=== PATIENT | female | born 1965 | race Caucasian/White ===

== ENCOUNTER 2016-09-06 15:56 | Inpatient (IN) ==
[2016-09-06] MEDS ORDERED: 0.9 % Sodium Chloride 1,000 ML IVC ONE ×2 (17:58→21:05)
[2016-09-06] MEDS ORDERED: *HR* Morphine 2 MG/ML SYRINGE IVP ONE (17:58)
--- NOTE | 2016-09-06 17:59 | Emergency Department Note ---
Disposition Clinical Impression: Small bowel obstruction Disposition: Admitted As Inpatient Condition: Fair General Adult HPI - General Chief complaint: ED Abdominal Pain Stated complaint: abd pain Time Seen by Provider: 09/06/16 17:38 Source: patient Limitations: no limitations - History of Present Illness Pain Scale: 10 - Related Data Home Medications Medication Instructions Recorded Confirmed Cholecalciferol (Vitamin D3) 1,000 unit PO DAILY 09/06/16 09/06/16 [Vitamin D3] Multivitamin [Multi-Day Vitamins] 1 tab PO DAILY 09/06/16 09/06/16 Thyroid,Pork [Director Microbiology Thyroid] 15 mg PO DAILY 09/06/16 09/06/16 Zinc Acetate [Galzin] 50 mg PO DAILY 09/06/16 09/06/16 Allergies Allergy/AdvReac Type Severity Reaction Status Date / Time gentamicin AdvReac Itching Verified 09/06/16 16:20 Sulfa (Sulfonamide AdvReac Hives Verified 09/06/16 16:20 Antibiotics) Past Medical History - Past Medical History Medical history: Reports: no medical history Psychiatric history: Reports: no psych history - Social History Smoking Status: Never smoker Smokeless Tobacco Status: No Alcohol use: Reports: none Drug use: Reports: none Physical Exam - General Limitations: no limitations General appearance: alert Course - Reevaluation(s) Reevaluation #1: I saw the patient with the resident, Dr. Aldrich. She presents with abdominal pain that started this morning. It was gradual in onset but rapidly progressing. She complains of pain diffusely. On physical exam the only place she is not tender in the entire abdominal exam is the left lower quadrant. She does have bowel sounds. She is not vomiting and has not had any urinary symptoms. She does report having had some diarrhea. We will give her medications for symptom relief and some IV fluids and will do a laboratory workup and a CAT scan of the belly. Disposition will be based on diagnostic results and reevaluation. Time: 17:58 Reevaluation #2: Patient's labs come back normal. Urine is a little abnormal but it seems to be contaminated. Furthermore she does not describe urinary tract infection symptoms. The radiologist called me with the CAT scan findings and there appears to be a small bowel obstruction that the radiologist is concerned is indicative of a closed loop obstruction or at the very least a high-grade obstruction. The patient does not look too bad here in the department. She is not throwing up here in the department. Belly is tender but improved with medication. We will go ahead and consult surgery for guidance on disposition. Time: 20:05 Vital Signs Temperature 97.5 F L 09/06/16 16:16 Pulse Rate 74 09/06/16 16:16 Respiratory Rate 16 09/06/16 16:16 Blood Pressure 165/106 09/06/16 16:16 O2 Sat by Pulse Oximetry 99 09/06/16 16:16 Temperature 98.4 F 09/09/16 16:00 Pulse Rate 64 09/09/16 16:00 Respiratory Rate 16 09/09/16 16:00 Blood Pressure 143/83 09/09/16 16:00 O2 Sat by Pulse Oximetry 95 09/09/16 16:00 Oxygen Delivery Oxygen Delivery Room Air Medical Decision Making - Lab Data Result diagrams: 09/09/16 06:35 09/09/16 06:35 Lab Results 09/06/16 09/06/16 09/06/16 Range/Units 18:47 18:47 18:57 WBC 9.7 (4.3-11.1) K/mcL RBC 4.63 (3.82-4.97) M/mcL Hgb 14.1 (11.5-15.4) g/dL Hct 42.3 (35.3-44.9) % MCV 91.4 (83.0-100.0) fL MCH 30.5 (28.0-33.3) pg MCHC 33.3 (31.6-35.5) g/dL RDW 12.7 (11.5-14.5) % Plt Count 229 (140-400) K/mcL MPV 12.2 (9.4-12.4) fL Immature Gran % 0.2 (0-4) % Seg Neutrophils % 86.6 % Lymphocytes % 9.7 % Monocytes % 3.0 % Eosinophils % 0.1 % Basophils % 0.4 % Neutrophils # 8.4 (1.6-8.9) K/mcL Lymphocytes # 0.9 (0.6-4.6) K/mcL Monocytes # 0.3 (0.0-1.3) K/mcL Eosinophils # 0.0 (0.0-0.6) K/mcL Basophils # 0.0 (0.0-0.2) K/mcL Sodium 135 L (136-145) mEq/L Potassium 4.0 (3.5-4.5) mEq/L Chloride 106 (98-109) mEq/L Carbon Dioxide 20 (19-29) mEq/L BUN 15 (7-20) mg/dL Creatinine 0.83 (0.57-1.11) mg/dL Est GFR ( Amer) > 60 (> 60) Est GFR (Non-Af Amer) > 60 (> 60) BUN/Creatinine Ratio 18 (6-26) Glucose 111 H (70-99) mg/dL POC Glucose (58-89) Calculated Osmolality 282 (280-300) Calcium 9.4 (8.6-10.8) mg/dL Magnesium (1.6-2.6) mg/dL Total Bilirubin 0.7 (0.2-1.2) mg/dL Direct Bilirubin 0.4 (0.0-0.5) mg/dL Indirect Bilirubin 0.3 (0.0-1.2) mg/dL AST 26 (5-34) Units/L ALT 32 (0-55) Units/L Alkaline Phosphatase 80 (38-126) Units/L Serum Total Protein 7.7 (6.0-8.3) g/dL Albumin 3.8 (3.5-5.0) g/dL Globulin 3.9 H (2.4-3.5) g/dL Albumin/Globulin Ratio 1.0 L (1.1-2.2) Amylase 48 (25-125) Units/L Lipase 26 (8-78) Units/L TSH (0.350-4.840) mcIU/mL Urine Color Yellow (Yellow) Urine Clarity Clear (Clear) Urine pH 8.0 (5.0-8.0) pH Units Ur Specific [place] 1.025 (1.010-1.025) Urine Protein 30 H (Neg-Trace) mg/dL Urine Glucose (UA) Normal (Normal) mg/dL Urine Ketones 15 H (Negative) mg/dL Urine Blood Negative (Negative) Urine Nitrite Negative (Negative) Urine Bilirubin Negative (Negative) Urine Urobilinogen Normal (Normal) mg/dL Ur Leukocyte Esterase Trace H (Negative) Urine Microscopic RBC 5-15 H (0-3) per hpf Urine Microscopic WBC 5-15 H (0-3) per hpf Ur Squamous Epith Cells Many H (None-Few) per lpf Urine Bacteria Moderate H (None-Few) per hpf Hyaline Casts None Seen (None-Few) per lpf Ur Culture Indicated? YES A (NO) 09/07/16 09/07/16 09/07/16 Range/Units 04:29 04:29 05:52 WBC 8.0 (4.3-11.1) K/mcL RBC 3.96 (3.82-4.97) M/mcL Hgb 12.2 D (11.5-15.4) g/dL Hct 37.8 (35.3-44.9) % MCV 95.5 (83.0-100.0) fL MCH 30.8 (28.0-33.3) pg MCHC 32.3 (31.6-35.5) g/dL RDW 12.9 (11.5-14.5) % Plt Count 203 (140-400) K/mcL MPV 12.3 (9.4-12.4) fL Immature Gran % 0.4 (0-4) % Seg Neutrophils % 67.1 % Lymphocytes % 22.0 % Monocytes % 8.2 % Eosinophils % 1.7 % Basophils % 0.6 % Neutrophils # 5.4 (1.6-8.9) K/mcL Lymphocytes # 1.8 (0.6-4.6) K/mcL Monocytes # 0.7 (0.0-1.3) K/mcL Eosinophils # 0.1 (0.0-0.6) K/mcL Basophils # 0.1 (0.0-0.2) K/mcL Sodium 140 (136-145) mEq/L Potassium 4.0 (3.5-4.5) mEq/L Chloride 110 H (98-109) mEq/L Carbon Dioxide 21 (19-29) mEq/L BUN 12 (7-20) mg/dL Creatinine 0.78 (0.57-1.11) mg/dL Est GFR ( Amer) > 60 (> 60) Est GFR (Non-Af Amer) > 60 (> 60) BUN/Creatinine Ratio 15 (6-26) Glucose 97 (70-99) mg/dL POC Glucose 88 (58-89) Calculated Osmolality 290 (280-300) Calcium 8.1 L (8.6-10.8) mg/dL Magnesium 1.9 (1.6-2.6) mg/dL Total Bilirubin 0.8 (0.2-1.2) mg/dL Direct Bilirubin (0.0-0.5) mg/dL Indirect Bilirubin (0.0-1.2) mg/dL AST 20 (5-34) Units/L ALT 25 (0-55) Units/L Alkaline Phosphatase 61 (38-126) Units/L Serum Total Protein 6.3 (6.0-8.3) g/dL Albumin 3.0 L D (3.5-5.0) g/dL Globulin 3.3 (2.4-3.5) g/dL Albumin/Globulin Ratio 0.9 L (1.1-2.2) Amylase (25-125) Units/L Lipase (8-78) Units/L TSH 1.697 (0.350-4.840) mcIU/mL Urine Color (Yellow) Urine Clarity (Clear) Urine pH (5.0-8.0) pH Units Ur Specific [place] (1.010-1.025) Urine Protein (Neg-Trace) mg/dL Urine Glucose (UA) (Normal) mg/dL Urine Ketones (Negative) mg/dL Urine Blood (Negative) Urine Nitrite (Negative) Urine Bilirubin (Negative) Urine Urobilinogen (Normal) mg/dL Ur Leukocyte Esterase (Negative) Urine Microscopic RBC (0-3) per hpf Urine Microscopic WBC (0-3) per hpf Ur Squamous Epith Cells (None-Few) per lpf Urine Bacteria (None-Few) per hpf Hyaline Casts (None-Few) per lpf Ur Culture Indicated? (NO) 09/07/16 Range/Units 11:05 WBC (4.3-11.1) K/mcL RBC (3.82-4.97) M/mcL Hgb (11.5-15.4) g/dL Hct (35.3-44.9) % MCV (83.0-100.0) fL MCH (28.0-33.3) pg MCHC (31.6-35.5) g/dL RDW (11.5-14.5) % Plt Count (140-400) K/mcL MPV (9.4-12.4) fL Immature Gran % (0-4) % Seg Neutrophils % % Lymphocytes % % Monocytes % % Eosinophils % % Basophils % % Neutrophils # (1.6-8.9) K/mcL Lymphocytes # (0.6-4.6) K/mcL Monocytes # (0.0-1.3) K/mcL Eosinophils # (0.0-0.6) K/mcL Basophils # (0.0-0.2) K/mcL Sodium (136-145) mEq/L Potassium (3.5-4.5) mEq/L Chloride (98-109) mEq/L Carbon Dioxide (19-29) mEq/L BUN (7-20) mg/dL Creatinine (0.57-1.11) mg/dL Est GFR ( Amer) (> 60) Est GFR (Non-Af Amer) (> 60) BUN/Creatinine Ratio (6-26) Glucose (70-99) mg/dL POC Glucose 85 (58-89) Calculated Osmolality (280-300) Calcium (8.6-10.8) mg/dL Magnesium (1.6-2.6) mg/dL Total Bilirubin (0.2-1.2) mg/dL Direct Bilirubin (0.0-0.5) mg/dL Indirect Bilirubin (0.0-1.2) mg/dL AST (5-34) Units/L ALT (0-55) Units/L Alkaline Phosphatase (38-126) Units/L Serum Total Protein (6.0-8.3) g/dL Albumin (3.5-5.0) g/dL Globulin (2.4-3.5) g/dL Albumin/Globulin Ratio (1.1-2.2) Amylase (25-125) Units/L Lipase (8-78) Units/L TSH (0.350-4.840) mcIU/mL Urine Color (Yellow) Urine Clarity (Clear) Urine pH (5.0-8.0) pH Units Ur Specific [place] (1.010-1.025) Urine Protein (Neg-Trace) mg/dL Urine Glucose (UA) (Normal) mg/dL Urine Ketones (Negative) mg/dL Urine Blood (Negative) Urine Nitrite (Negative) Urine Bilirubin (Negative) Urine Urobilinogen (Normal) mg/dL Ur Leukocyte Esterase (Negative) Urine Microscopic RBC (0-3) per hpf Urine Microscopic WBC (0-3) per hpf Ur Squamous Epith Cells (None-Few) per lpf Urine Bacteria (None-Few) per hpf Hyaline Casts (None-Few) per lpf Ur Culture Indicated? (NO) Attestation Statement - Attestation Attestation: I, Dr. Padilla, examined this patient [id number] and my medical decision- making was reviewed with Dr. Aldrich, Resident Physician. I agree with the documented findings, disposition and treatment plan as described except to the extent set forth below. Please see my progress notes for details.
--- NOTE | 2016-09-06 18:24 | Emergency Department Note ---
Disposition Clinical Impression: Small bowel obstruction Disposition: Admitted As Inpatient Condition: Fair Referrals: Lucille Hood CNP [Primary Care Provider] - Forms: ED Satisfaction Letter, Work/School Release Abdominal Pain HPI - General Chief Complaint: ED Abdominal Pain Stated Complaint: abd pain Time Seen by Provider: 09/06/16 17:38 Source: patient - History of Present Illness HPI Narrative: 51-year-old female with no significant past medical history presents to the emergency department complaining of sharp epigastric pains that began at 0500 today. She describes the pains as "contractions" that come and go quickly. They have remained constant throughout the day. She notes that she is bloated and has had 3-4 episodes of diarrhea that began as loose and are now watery throughout the day, chills, lightheadedness with associated diaphoresis, decreased appetite and decreased fluid intake. She denies any recent sick contacts. She does state that she ate spaghetti squash last night for the first time. She has had 3 laparoscopic abdominal surgeries in the past and a hysterectomy. She notes that one of the laparoscopic surgeries is to remove adhesions in her abdomen. She states that in the past she was also evaluated for gallbladder problems, but she still has her gallbladder. she denies any vomiting significant nausea, fevers, recent weight loss, chest pain, palpitations, cough, wheezing, ear nose and throat symptoms, shortness of breath , numbness, rashes, bruising. Pain Scale: 10 - Related Data Allergies Allergy/AdvReac Type Severity Reaction Status Date / Time gentamicin AdvReac Itching Verified 09/06/16 16:20 Sulfa (Sulfonamide AdvReac Hives Verified 09/06/16 16:20 Antibiotics) All systems ED: reviewed and negative except as stated. Constitutional: Reports: chills. Denies: fever, weight change Cardiovascular: Denies: chest pain, palpitations Respiratory: Denies: dyspnea Gastrointestinal: Reports: abdominal pain, diarrhea. Denies: vomiting, hematemesis, melena Genitourinary: Denies: hematuria Abdominal Pain PMH - Past Medical History Medical history: Reports: no medical history Female Surgical History: Reports: hysterectomy, other Psychiatric history: Reports: no psych history - Social History Smoking status: Never smoker Alcohol use: Reports: none Drug use: Reports: none Physical Exam General: Alert and appears in mild distress, lying under a blanket in bed. Skin: Cool, dry, intact Head: Normocephalic and atraumatic Eye: PERRLA, EOMI Neck: Supple, trachea midline and no tenderness Cardiovascular: RRR, no murmur, normal perfusion, peripheral pulses equal b/l UE /LE Respiratory: CTAB, no wheezing, cough, or respiratory distress Musculoskeletal: Muscle strength, no tenderness, swelling or deformity GI: Soft, diffuse tenderness to RUQ, LUQ, RLQ and epigastric area, nondistended. Bowel sounds present. No guarding or rigidity Neuro: A&O to person, place, time and situation. No focal deficits noted on exam Psychiatric: Cooperative and appropriate mood and affect - General Limitations: no limitations General appearance: alert Course Course Narrative: Dear female presents to the emergency department complaining of abdominal pain that she describes as sharp, crampy and similar to contractions that began abruptly at 0500 this morning. She states that it has remained unchanged all day. It is associated with feeling bloated, diarrhea 3-4 times today that began as loose and then became watery, chills, lightheadedness associated with diaphoresis and slight nausea she describes decreased appetite and fluid intake as well. Denied vomiting and fever. On exam she appears lethargic with dry lips and diffusely tender abdomen. She does have bowel sounds and no peritoneal signs. The patient has a history of 3 laparoscopic abdominal surgeries, occluding 1 for adhesions, and a hysterectomy. Due to her abdominal surgical history suspicion is high for possible small bowel obstruction. Her CBC was unremarkable with WBC of 9.7. Her CMP was also unremarkable. Her CT scan of the abdomen revealed an early high grade small bowel obstruction versus possible closed loop obstruction in the left mid abdomen. Dr. Greenberg with general surgery was consulted, and requested the patient be admitted to the hospitalist service, started on IV fluids, NG tube placed and a consult to him placed. Dr. Dasilva with the hospitalist service was contacted and has accepted the patient for admission. - Reevaluation(s) Reevaluation #1: I have discussed the CAT scan results with the patient. I discussed that she has small bowel obstruction and that I have spoken to Dr. Greenberg, the general surgeon. I discussed that he would like her to be admitted and hydrated with IV fluids. I also explained that he would like an NG tube placed and discussed the process with her and her . She is agreeable to the plan and states understanding. She states that her pain is controlled currently and that she is not experiencing any nausea this time. - Consultations Consultation #1: Discussed with patient case with Dr. Greenberg. He would like us to admit the patient to the hospitalist service at this time, hydrate her with IV fluids and place an NG tube with a consult to General Surgery. Time: 21:00 Consultation #2: Case was discussed with hospitalist Dr. Dasilva who has accepted the patient for admission. Time: 21:15 Vital Signs Temperature 97.5 F L 09/06/16 16:16 Pulse Rate 74 09/06/16 16:16 Respiratory Rate 16 09/06/16 16:16 Blood Pressure 165/106 09/06/16 16:16 O2 Sat by Pulse Oximetry 99 09/06/16 16:16 Temperature 97.5 F L 09/06/16 16:16 Pulse Rate 71 09/06/16 19:27 Respiratory Rate 16 09/06/16 19:27 Blood Pressure 146/93 09/06/16 19:27 O2 Sat by Pulse Oximetry 99 09/06/16 19:27 Oxygen Delivery Oxygen Delivery Room Air Abdominal Pain - Lab Data Lab results reviewed: Yes I reviewed the patient's lab results. Result diagrams: 09/06/16 18:47 09/06/16 18:47 Lab Results 09/06/16 09/06/16 09/06/16 Range/Units 18:47 18:47 18:57 WBC 9.7 (4.3-11.1) K/mcL RBC 4.63 (3.82-4.97) M/mcL Hgb 14.1 (11.5-15.4) g/dL Hct 42.3 (35.3-44.9) % MCV 91.4 (83.0-100.0) fL MCH 30.5 (28.0-33.3) pg MCHC 33.3 (31.6-35.5) g/dL RDW 12.7 (11.5-14.5) % Plt Count 229 (140-400) K/mcL MPV 12.2 (9.4-12.4) fL Immature Gran % 0.2 (0-4) % Seg Neutrophils % 86.6 % Lymphocytes % 9.7 % Monocytes % 3.0 % Eosinophils % 0.1 % Basophils % 0.4 % Neutrophils # 8.4 (1.6-8.9) K/mcL Lymphocytes # 0.9 (0.6-4.6) K/mcL Monocytes # 0.3 (0.0-1.3) K/mcL Eosinophils # 0.0 (0.0-0.6) K/mcL Basophils # 0.0 (0.0-0.2) K/mcL Sodium 135 L (136-145) mEq/L Potassium 4.0 (3.5-4.5) mEq/L Chloride 106 (98-109) mEq/L Carbon Dioxide 20 (19-29) mEq/L BUN 15 (7-20) mg/dL Creatinine 0.83 (0.57-1.11) mg/dL Est GFR ( Amer) > 60 (> 60) Est GFR (Non-Af Amer) > 60 (> 60) BUN/Creatinine Ratio 18 (6-26) Glucose 111 H (70-99) mg/dL Calculated Osmolality 282 (280-300) Calcium 9.4 (8.6-10.8) mg/dL Total Bilirubin 0.7 (0.2-1.2) mg/dL Direct Bilirubin 0.4 (0.0-0.5) mg/dL Indirect Bilirubin 0.3 (0.0-1.2) mg/dL AST 26 (5-34) Units/L ALT 32 (0-55) Units/L Alkaline Phosphatase 80 (38-126) Units/L Serum Total Protein 7.7 (6.0-8.3) g/dL Albumin 3.8 (3.5-5.0) g/dL Globulin 3.9 H (2.4-3.5) g/dL Albumin/Globulin Ratio 1.0 L (1.1-2.2) Amylase 48 (25-125) Units/L Lipase 26 (8-78) Units/L Urine Color Yellow (Yellow) Urine Clarity Clear (Clear) Urine pH 8.0 (5.0-8.0) pH Units Ur Specific [place] 1.025 (1.010-1.025) Urine Protein 30 H (Neg-Trace) mg/dL Urine Glucose (UA) Normal (Normal) mg/dL Urine Ketones 15 H (Negative) mg/dL Urine Blood Negative (Negative) Urine Nitrite Negative (Negative) Urine Bilirubin Negative (Negative) Urine Urobilinogen Normal (Normal) mg/dL Ur Leukocyte Esterase Trace H (Negative) Urine Microscopic RBC 5-15 H (0-3) per hpf Urine Microscopic WBC 5-15 H (0-3) per hpf Ur Squamous Epith Cells Many H (None-Few) per lpf Urine Bacteria Moderate H (None-Few) per hpf Hyaline Casts None Seen (None-Few) per lpf Ur Culture Indicated? YES A (NO) - Radiology Data Radiology results reviewed: Yes I reviewed the patient's radiology results. CT abdomen/pelvis: 1.Early high grade small bowel obstruction versus possible closed loop obstruction in the left mid abdomen with associated ascites and mesenteric stranding. No pneumatosis or free air. 2. 3.7 cm mixed density area within the right anterior pelvis which may represent the patient's right ovary versus loculated hemorrhagic fluid. 3. 3 mm nonobstructing left renal calculus
[2016-09-06 18:59] LABS: Basophils % 0.4 %; Eosinophils % 0.1 %; Hematocrit 42.3 % (35.3-44.9); Hemoglobin 14.1 g/dL (11.5-15.4); Immature Granulocytes % 0.2 % (0-4); Lymphocytes # 0.9 K/mcL (0.6-4.6); Lymphocytes % 9.7 %; Mean Corpuscular HGB Conc 33.3 g/dL (31.6-35.5); Mean Corpuscular Hemoglobin 30.5 pg (28.0-33.3); Mean Corpuscular Volume 91.4 fL (83.0-100.0); Mean Platelet Volume 12.2 fL (9.4-12.4); Monocytes # 0.3 K/mcL (0.0-1.3); Neutrophils # 8.4 K/mcL (1.6-8.9); Platelet Count 229 K/mcL (140-400); Red Blood Count 4.63 M/mcL (3.82-4.97); Red Cell Distribution Width 12.7 % (11.5-14.5); Segmented Neutrophils % 86.6 %
[2016-09-06 19:14] LABS: Alanine Aminotransferase 32 Units/L (0-55); Albumin 3.8 g/dL (3.5-5.0); Alkaline Phosphatase 80 Units/L (38-126); Amylase 48 Units/L (25-125); Aspartate Amino Transferase 26 Units/L (5-34); BUN/Creatinine Ratio 18 (6-26); Bilirubin,Direct 0.4 mg/dL (0.0-0.5); Bilirubin,Indirect 0.3 mg/dL (0.0-1.2); Bilirubin,Total 0.7 mg/dL (0.2-1.2); Blood Urea Nitrogen 15 mg/dL (7-20); Calcium 9.4 mg/dL (8.6-10.8); Carbon Dioxide 20 mEq/L (19-29); Chloride 106 mEq/L (98-109); Globulin 3.9 g/dL (2.4-3.5); Glucose 111 mg/dL (70-99); Lipase 26 Units/L (8-78); Osmolality,Calculated 282 (280-300); Sodium 135 mEq/L (136-145); Total Protein 7.7 g/dL (6.0-8.3); eGFR For African Americans > 60 (> 60); eGFR For Non-African Americans > 60 (> 60)
[2016-09-06 19:16] LABS: Bilirubin,Urine Negative (Negative); Blood,Urine Negative (Negative); Clarity,Urine Clear (Clear); Color,Urine Yellow (Yellow); Glucose,Urine (UA) Normal (Normal); Ketones,Urine 15 mg/dL (Negative); Leukocyte Esterase,Urine Trace (Negative); Nitrite,Urine Negative (Negative); Protein,Urine 30 mg/dL (Neg-Trace); Specific Gravity,Urine 1.025 (1.010-1.025); Urobilinogen,Urine Normal (Normal)
[2016-09-06 19:18] LABS: Bacteria,Urine Moderate per hpf (None-Few); Hyaline Casts,Urine None Seen per lpf (None-Few); Squamous Epithelial Cell,Urine Many per lpf (None-Few)
[2016-09-06] MEDS ORDERED: Ondansetron 4 MG/2 ML VIAL IVP ONE (21:30)
[2016-09-06] MEDS ORDERED: Naloxone 0.4 MG/ML INJ IVP PRN (23:33)
[2016-09-06] MEDS: Pantoprazole 40 MG VIAL IVP SCH (23:54)
[2016-09-06] MEDS: 0.9 % Sodium Chloride w KCl 20 MEQ/1,000 ML MLS IVC SCH (23:54)
[2016-09-06] MEDS: *HR* Morphine 2 MG/ML SYRINGE IVP PRN (23:54)
[2016-09-06] MEDS: *HR* Heparin 5,000 UNIT/ML VIAL SQ SCH (23:54)
--- NOTE | 2016-09-07 03:08 | Internal Med History&Physical ---
Date of Encounter: 09/06/16 Time of Encounter: 23:20 Assessment and Plan (1) Small bowel obstruction Current visit: Yes Status: Acute 1. Continue NGT to low wall suction. 2. IVF. 3. NPO. 4. Surgery consult. 5. Follow up xray (AAS) in the morning. 6. Pain control with IV morphine PRN and anti-emetic therapy as needed. (2) DVT prophylaxis Current visit: Yes Status: Acute 1. Heparin SQ. Internal Medicine - H&P: HPI Chief complaint: nausea/vomiting/abdominal pain Admitted From: Emergency Dept Plans for Post Hospital Care: Home History of present illness: Ms. Wagner is a 51 year old female who presented to ER [facility] with about a 24- hour history of protracted nausea, vomiting, and abdominal pain. Symptom onset was sudden and persisted throughout the day. Because of persistent symptoms and lack of improvement, she came to the ER for evaluation. She was seen and evaluated and diagnosed with small bowel obstruction based upon CT imaging of her abdomen and pelvis. Consult was placed to Dr. Greenberg for surgical consultation and request was made to admit to hospitalist service. Upon my assessment of the patient, she feels much better after her NG tube placement and pain medication. She denies any fevers, chills, cough, chest pain , shortness of breath, or myalgias. She has never had any small bowel obstruction before and/or any chronic GI issues. She has had prior gynecologic surgery in the form of hysterectomy, laparoscopy, and lysis of adhesions several years ago by gynecology. Of note, she takes [id number] thyroid supplement and multiple other supplements. She denies any chronic illnesses. In particular, she denies any hypothyroidism or any chronically managed disease process by her PCP. Past Med Surg Social Fam HX - Past Medical History Attestation: Yes The following information was validated with the patient. Source: patient, old records reviewed Medical history: no medical history Psychiatric history: no psych history - Past Surgical History Surgical History: hysterectomy, other (lysis of adhesions) - Social History Smoking Status: Never smoker Smokeless Tobacco Status: No Alcohol use: none Drug use: none Occupational status: employed Current living situation: Home, With Family Activity Level: Independent ambulation Recent Out of Country Travel Within the Last 8 Weeks: No - Family History Mother Hx Family Cardiac Disorders: Yes (HTN) Father Hx Family Cardiac Disorders: Yes (HTN) Hx Family Endocrine Disorder: Yes (DM) Internal Medicine - H&P: Meds Cholecalciferol (Vitamin D3) [Vitamin D] 1,000 unit PO DAILY 09/06/16 [History] Multivitamin [Multi-Day Vitamins] 1 tab PO DAILY 09/06/16 [History] Thyroid,Pork [Dog Walker Thyroid] 15 mg PO DAILY 09/06/16 [History] Zinc Acetate [Galzin] 50 mg PO DAILY 09/06/16 [History] Allergies gentamicin Adverse Reaction (Verified 09/06/16 16:20) Itching Sulfa (Sulfonamide Antibiotics) Adverse Reaction (Verified 09/06/16 16:20) Hives - Constitutional Constitutional: no chills, no fever(s) - EENT Eyes: no blurry vision, no change in vision Ears: no ear pain, no tinnitus Nose, mouth and throat: no nasal congestion, no sinus pressure, no sore throat - Cardiovascular Cardiovascular ROS IM: no chest pain, no dyspnea, no dyspnea on exertion - Respiratory Respiratory: no cough, no dyspnea, no hemoptysis, no dyspnea on exertion - Gastrointestinal Gastrointestinal: nausea, vomiting, no abdominal pain, no diarrhea, no hematemesis, no hematochezia, no melena - Genitourinary Genitourinary: no dysuria, no flank pain, no hematuria - Musculoskeletal Musculoskeletal ROS IM: no arthralgias, no back pain - Integumentary Integumentary IM: no rash, no jaundice - Neurological Neurological ROS: no dizziness, no focal weakness, no frequent falls - Psychiatric Psychiatric: no anxiety, no depression - Endocrine Endocrine IM: no cold intolerance, no heat intolerance - Hematologic/Lymphatic Hematologic/Lymphatic: no easy bruising, no lymphadenopathy - Allergic/Immunologic Allergic/Immunologic: no wheezing, no GI upset with certain foods - Constitutional Vitals: Temp Pulse Resp BP Pulse Ox 98.1 F 85 15 146/83 97 09/06/16 22:44 09/06/16 22:44 09/06/16 22:44 09/06/16 22:44 09/06/16 22:44 General appearance: Present: cooperative, mild distress, A&O X 3, pleasant, answers questions appropriately - Head Head exam: Present: atraumatic, normal inspection - Expanded Head Exam Head exam expanded: Absent: abrasion, contusion, general tenderness - Eye Eye exam: Present: EOMI, normal appearance, PERRL. Absent: scleral icterus Pupils: Present: normal accommodation - ENT ENT exam: Present: mucous membranes dry, normal exam, normal oropharynx Additional comments: NG tube in place - Neck Neck exam general surgery: Present: full ROM, normal inspection, supple. Absent : lymphadenopathy, nuchal rigidity, thyromegaly - Respiratory Respiratory exam: Present: CTAB. Absent: rales, respiratory distress, rhonchi, wheezes - Cardiovascular Cardiovascular exam: Present: RRR, +S1, +S2. Absent: diastolic murmur, systolic murmur - GI/Abdominal GI/Abdominal exam: Present: diminished bowel sounds, distended, tenderness ( diffuse), no peritoneal signs. Absent: guarding, hepatomegaly, mass, rebound, splenomegaly - Extremities Exam Extremities exam: Present: full ROM, normal capillary refill, warm. Absent: calf tenderness, joint swelling - Back Exam Back exam: Present: normal inspection. Absent: CVA tenderness (L), CVA tenderness (R) - Neurological Exam Neurological exam: Present: alert, CN II-XII intact, oriented X3, no focal deficits - Psychiatric Psychiatric exam: Present: normal affect, normal mood - Skin Skin exam: Present: dry, warm. Absent: rash Internal Med - H&P Results - Labs CBC & Chem 7: 09/06/16 18:47 09/06/16 18:47
[2016-09-07 05:01] LABS: Basophils # 0.1 K/mcL (0.0-0.2); Basophils % 0.6 %; Eosinophils # 0.1 K/mcL (0.0-0.6); Eosinophils % 1.7 %; Hematocrit 37.8 % (35.3-44.9); Hemoglobin 12.2 g/dL (11.5-15.4); Immature Granulocytes % 0.4 % (0-4); Lymphocytes # 1.8 K/mcL (0.6-4.6); Mean Corpuscular HGB Conc 32.3 g/dL (31.6-35.5); Mean Corpuscular Hemoglobin 30.8 pg (28.0-33.3); Mean Corpuscular Volume 95.5 fL (83.0-100.0); Mean Platelet Volume 12.3 fL (9.4-12.4); Monocytes # 0.7 K/mcL (0.0-1.3); Monocytes % 8.2 %; Neutrophils # 5.4 K/mcL (1.6-8.9); Platelet Count 203 K/mcL (140-400); Red Blood Count 3.96 M/mcL (3.82-4.97); Red Cell Distribution Width 12.9 % (11.5-14.5); Segmented Neutrophils % 67.1 %
[2016-09-07 05:24] LABS: Alanine Aminotransferase 25 Units/L (0-55); Albumin/Globulin Ratio 0.9 (1.1-2.2); Alkaline Phosphatase 61 Units/L (38-126); Aspartate Amino Transferase 20 Units/L (5-34); BUN/Creatinine Ratio 15 (6-26); Bilirubin,Total 0.8 mg/dL (0.2-1.2); Blood Urea Nitrogen 12 mg/dL (7-20); Calcium 8.1 mg/dL (8.6-10.8); Carbon Dioxide 21 mEq/L (19-29); Chloride 110 mEq/L (98-109); Globulin 3.3 g/dL (2.4-3.5); Glucose 97 mg/dL (70-99); Magnesium 1.9 mg/dL (1.6-2.6); Osmolality,Calculated 290 (280-300); Sodium 140 mEq/L (136-145); Total Protein 6.3 g/dL (6.0-8.3); eGFR For African Americans > 60 (> 60); eGFR For Non-African Americans > 60 (> 60)
[2016-09-07 05:40] LABS: Thyroid Stimulating Hormone 1.697 mcIU/mL (0.350-4.840)
[2016-09-07] MEDS ORDERED: Chloraseptic Spray 177 ML BOTTLE MM PRN ×2 (06:48→08:23)
[2016-09-07] MEDS: *HR* Heparin 5,000 UNIT/ML VIAL SQ SCH ×2 (06:50→19:07)
[2016-09-07] MEDS: 0.9 % Sodium Chloride w KCl 20 MEQ/1,000 ML MLS IVC SCH ×2 (08:10→16:31)
--- NOTE | 2016-09-07 08:16 | General Surgery Consult Note ---
<Laura Barakat Adilene - Last Filed: 09/07/16 08:02> Date of Encounter: 09/07/16 Time of Encounter: 08:00 Assessment and Plan (1) Small bowel obstruction Current Visit: Yes Status: Acute Continue with conservative treatment including: NPO and bowel rest NG tube to LIWS IV fluids Supportive care and pain control Repeat X-rays this am ordered per hospitalist Serial abdominal exams No urgent surgical intervention indicated at this time- will continue to follow and assess patient progress History of Present Illness Consult date: 09/07/16 Reason for consult: other (SBO) Requesting physician: Jeanmarie Loera History of present illness: Ms. Wagenr is a very pleasant 51 year old female with no significant past medical history who presents to the ED with complaints of abdominal pain. She reports that she had sudden onset of generalized abdominal discomfort yesterday which progressively worsened. She denies any aggrevating or alleviating factors. She admits to belching and mild nausea. Denies any vomiting. Admit to bloating. She reports 3-4 episodes of diarrhea yesterday without melena or hematochezia. She has had not recent changes in bowel habits with the exception of diarrhea yesterday. She does admit to shortness of breath due to the abdominal discomfort. She denies any chest pains. Denies any dysuria or urgency. She states that she had an episode similar to this many years ago but has never specifically been diagnosed with a bowel obstruction. She did have CT scan which shows concerns for a bowel obstruction. She did have an NG tube placed and states that she feels better today. We have been asked to see and evaluate the patient for surgical recommendations. Past Med Surg Social Fam HX - Past Medical History Source: patient Medical history: no medical history Psychiatric history: no psych history - Past Surgical History Surgical History: breast surgery (biopsy (benign)), hysterectomy, other (lysis of adhesions) - Social History Smoking Status: Never smoker Smokeless Tobacco Status: No Alcohol use: none Drug use: none Occupational status: employed Current living situation: Home - Independent Activity Level: Independent ambulation - Family History Mother Living Status: Still Living Hx Family Cardiac Disorders: Yes (HTN) Father Living Status: Still Living Hx Family Cardiac Disorders: Yes (HTN) Hx Family Endocrine Disorder: Yes (DM) Medications and Allergies Cholecalciferol (Vitamin D3) [Vitamin D] 1,000 unit PO DAILY 09/06/16 [History] Multivitamin [Multi-Day Vitamins] 1 tab PO DAILY 09/06/16 [History] Thyroid,Pork [Cloth Cutter Thyroid] 15 mg PO DAILY 09/06/16 [History] Zinc Acetate [Galzin] 50 mg PO DAILY 09/06/16 [History] Allergies gentamicin Adverse Reaction (Verified 09/06/16 16:20) Itching Sulfa (Sulfonamide Antibiotics) Adverse Reaction (Verified 09/06/16 16:20) Hives Review of Systems All systems PM: reviewed and no additional remarkable complaints except as stated (in the HPI) All systems PM: A 10-system review of systems was performed and is negative for pertinent findings except as documented above in the HPI. General Surgery Exam Initial Vital Signs Temp Pulse Resp BP Pulse Ox 97.5 F L 74 16 165/106 99 09/06/16 16:16 09/06/16 16:16 09/06/16 16:16 09/06/16 16:16 09/06/16 16:16 - General physical appearance well developed, well nourished, no distress, moderate pain - Eyes normal ocular movement - ENT normal mucosa, atraumatic, normocephalic - Neck trachea midline - Respiratory normal respiratory effort, clear to auscultation - Cardiovascular Cardiovascular exam: Present: RRR, 15, 16 - Abdomen Abdomen general surgery: Present: bowel sounds present (hypoactive), soft, tender (lower abdomen, mildly), wound (NG tube to LIWS (400ml of bilious drainage noted)) - Integumentary Integumentary general surgery: Present: warm and dry - Neurologic Present: CN 2-12 grossly intact - Musculoskeletal Present: normal gait, normal posture - Psychiatric Psychiatric general surgery: Present: appropriate, oriented to person, oriented to place, oriented to time, speech is normal, memory intact Exam Initial Vital Signs Temp Pulse Resp BP Pulse Ox 97.5 F L 74 16 165/106 99 09/06/16 16:16 09/06/16 16:16 09/06/16 16:16 09/06/16 16:16 09/06/16 16:16 Results - Labs 09/07/16 04:29 09/07/16 04:29 Abnormal lab results Chloride 110 mEq/L (98-109) H 09/07/16 04:29 Calcium 8.1 mg/dL (8.6-10.8) L 09/07/16 04:29 Albumin 3.0 g/dL (3.5-5.0) L D 09/07/16 04:29 Albumin/Globulin Ratio 0.9 (1.1-2.2) L 09/07/16 04:29 Urine Protein 30 mg/dL (Neg-Trace) H 09/06/16 18:57 Urine Ketones 15 mg/dL (Negative) H 09/06/16 18:57 Ur Leukocyte Esterase Trace (Negative) H 09/06/16 18:57 Urine Microscopic RBC 5-15 per hpf (0-3) H 09/06/16 18:57 Urine Microscopic WBC 5-15 per hpf (0-3) H 09/06/16 18:57 Ur Squamous Epith Cells Many per lpf (None-Few) H 09/06/16 18:57 Urine Bacteria Moderate per hpf (None-Few) H 09/06/16 18:57 Ur Culture Indicated? YES (NO) A 09/06/16 18:57 Diabetes panel 09/07/16 Range/Units 04:29 Sodium 140 (136-145) mEq/L Potassium 4.0 (3.5-4.5) mEq/L Chloride 110 H (98-109) mEq/L Carbon Dioxide 21 (19-29) mEq/L BUN 12 (7-20) mg/dL Creatinine 0.78 (0.57-1.11) mg/dL Glucose 97 (70-99) mg/dL Calcium 8.1 L (8.6-10.8) mg/dL AST 20 (5-34) Units/L ALT 25 (0-55) Units/L Alkaline Phosphatase 61 (38-126) Units/L Albumin 3.0 L D (3.5-5.0) g/dL Thyroid panel 09/07/16 Range/Units 04:29 TSH 1.697 (0.350-4.840) mcIU/mL Calcium panel 09/07/16 Range/Units 04:29 Calcium 8.1 L (8.6-10.8) mg/dL Albumin 3.0 L D (3.5-5.0) g/dL Pituitary panel 09/07/16 Range/Units 04:29 Sodium 140 (136-145) mEq/L Potassium 4.0 (3.5-4.5) mEq/L Chloride 110 H (98-109) mEq/L Carbon Dioxide 21 (19-29) mEq/L BUN 12 (7-20) mg/dL Creatinine 0.78 (0.57-1.11) mg/dL Glucose 97 (70-99) mg/dL Calcium 8.1 L (8.6-10.8) mg/dL TSH 1.697 (0.350-4.840) mcIU/mL Adrenal panel 09/07/16 Range/Units 04:29 Sodium 140 (136-145) mEq/L Potassium 4.0 (3.5-4.5) mEq/L Chloride 110 H (98-109) mEq/L Carbon Dioxide 21 (19-29) mEq/L BUN 12 (7-20) mg/dL Creatinine 0.78 (0.57-1.11) mg/dL Glucose 97 (70-99) mg/dL Calcium 8.1 L (8.6-10.8) mg/dL Total Bilirubin 0.8 (0.2-1.2) mg/dL AST 20 (5-34) Units/L ALT 25 (0-55) Units/L Alkaline Phosphatase 61 (38-126) Units/L Albumin 3.0 L D (3.5-5.0) g/dL All other labs normal. - Imaging CT scan - abdomen: report reviewed CT scan - pelvis: report reviewed Additional studies: Abdomen/Pelvis CT 09/06/16 17:57 IMPRESSION: 1. Early high-grade small bowel obstruction versus possible closed loop obstruction in the left mid abdomen with associated ascites and mesenteric stranding. No pneumatosis or free air. 2. There is a 3.7 cm mixed density area within the right anterior pelvis which may represent the patient's right ovary versus loculated hemorrhagic fluid. Within this area there is a more focal 1.6 cm hyperdense area with similar appearing foci in the right lower pelvis. Recommend correlation with any history of endometriosis. 3. There is a 3 mm nonobstructing left renal calculus. Results were called to Dr. Padilla at 20:02 on 09/06/2016. D/ / 09/06/2016 20:10:57 Rebecca Canales MD / conchita Interpreting Provider: Rebecca Canales MD Consult Discharge Plan - Plan Referrals: Lucille Hood, [employer] [Primary Care Provider] - - Attending Attestation I examined this patient and my medical decision-making was reviewed with the TIE INSPECTOR/PA/Advanced Practice Nurse/Resident Physician. I agree with the documented findings, disposition and treatment plan as described except to the extent set forth below. <Mike Greenberg M - Last Filed: 09/07/16 17:05> Date of Encounter: 09/07/16 Review of Systems All systems PM: A 10-system review of systems was performed and is negative for pertinent findings except as documented above in the HPI. General Surgery Exam Initial Vital Signs Temp Pulse Resp BP Pulse Ox 97.5 F L 74 16 165/106 99 09/06/16 16:16 09/06/16 16:16 09/06/16 16:16 09/06/16 16:16 09/06/16 16:16 Exam Initial Vital Signs Temp Pulse Resp BP Pulse Ox 97.5 F L 74 16 165/106 99 09/06/16 16:16 09/06/16 16:16 09/06/16 16:16 09/06/16 16:16 09/06/16 16:16 Results - Labs 09/07/16 04:29 09/07/16 04:29 Abnormal lab results Chloride 110 mEq/L (98-109) H 09/07/16 04:29 Calcium 8.1 mg/dL (8.6-10.8) L 09/07/16 04:29 Albumin 3.0 g/dL (3.5-5.0) L D 09/07/16 04:29 Albumin/Globulin Ratio 0.9 (1.1-2.2) L 09/07/16 04:29 Urine Protein 30 mg/dL (Neg-Trace) H 09/06/16 18:57 Urine Ketones 15 mg/dL (Negative) H 09/06/16 18:57 Ur Leukocyte Esterase Trace (Negative) H 09/06/16 18:57 Urine Microscopic RBC 5-15 per hpf (0-3) H 09/06/16 18:57 Urine Microscopic WBC 5-15 per hpf (0-3) H 09/06/16 18:57 Ur Squamous Epith Cells Many per lpf (None-Few) H 09/06/16 18:57 Urine Bacteria Moderate per hpf (None-Few) H 09/06/16 18:57 Ur Culture Indicated? YES (NO) A 09/06/16 18:57 All other labs normal. - Attending Attestation I reviewed the above physical exam and assessment. Pain started yesterday. No nausea or vomiting. Last BM yesterday. Currently the pain has improved. NGT in place. Mild flatus. Agree with continued pain control and NGT decompression. Serial abdominal examination. Hopefully conservative treatment will result in resolution of her symptoms. Will follow closely.
[2016-09-07] MEDS ORDERED: Lidocaine Viscous Oral Soln 15 ML SOLUTION MM PRN (08:25)
[2016-09-07] MEDS: Pantoprazole 40 MG VIAL IVP SCH (08:25)
[2016-09-07] MEDS: *HR* Morphine 2 MG/ML SYRINGE IVP PRN (10:06)
--- NOTE | 2016-09-07 13:20 | Internal Med Progress Note ---
Date of Encounter: 09/07/16 Time of Encounter: 09:00 - Assessment and plan (1) Small bowel obstruction Current Visit: Yes Status: Acute Assessment and plan: Continue medically conservative treatment with nothing by mouth, IV fluid, and NG tube low pressure suctioning. Closely monitoring (2) DVT prophylaxis Current Visit: Yes Status: Acute Assessment and plan: Heparin subcutaneously - Time Spent With Patient 25 - 35 minutes - Subjective Interval history: Patient is a 51-year-old female admitted for small bowel obstruction. Her past medical history is significant for history of hysterectomy. Patient was seen and examined. She is on nothing by mouth and NG tube low pressure suctioning. Patient said abdominal pain is much less after treatment. She can passing gas sometimes. Vitals are stable. Surgical consult on case and appreciated. We will continue conservative treatment and close monitoring. - Constitutional Vitals: Temp Pulse Resp BP Pulse Ox 98.3 F 74 14 139/90 94 L 09/07/16 11:06 09/07/16 11:06 09/07/16 11:06 09/07/16 11:06 09/07/16 11:06 General appearance: Present: cooperative, mild distress, A&O X 3, pleasant, answers questions appropriately - Head Head exam: Present: atraumatic, normocephalic - Eye Eye exam: Present: PERRL, conjuntiva pink, sclera anicteric Pupils: Present: PERRL - Neck Neck exam general surgery: Present: supple, trachea midline. Absent: lymphadenopathy - Respiratory Respiratory exam: Present: CTAB. Absent: accessory muscle use, rales, rhonchi, wheezes - Cardiovascular Cardiovascular exam: Present: RRR, +S1, +S2. Absent: diastolic murmur, gallop, rubs, systolic murmur - GI/Abdominal GI/Abdominal exam: Present: normal bowel sounds, soft, no peritoneal signs. Absent: distended, tenderness - Extremities Exam Extremities exam: Present: warm, radial pulses palpable and symetrical. Absent : calf tenderness, cyanotic, pedal edema - Neurological Exam Neurological exam: Present: CN II-XII intact, oriented X3, no focal deficits. Absent: pronater drift, facial droop, speech deficit - Skin Skin exam: Present: dry, intact Internal Medicine: Result - Labs CBC & Chem 7: 09/07/16 04:29 09/07/16 04:29 Consult Discharge Plan - Plan Referrals: Lucille Hood, LOW [Primary Care Provider] -
[2016-09-07] MEDS: Ondansetron 4 MG/2 ML VIAL IVP PRN ×2 (14:53)
[2016-09-07] MEDS ORDERED: *HR* LORazepam 2 MG/ML VIAL IVP ONE (22:20)
[2016-09-08] MEDS: 0.9 % Sodium Chloride w KCl 20 MEQ/1,000 ML MLS IVC SCH ×2 (00:52→09:09)
[2016-09-08 03:36] LABS: Basophils # 0.1 K/mcL (0.0-0.2); Basophils % 0.7 %; Eosinophils # 0.2 K/mcL (0.0-0.6); Eosinophils % 2.4 %; Hematocrit 36.8 % (35.3-44.9); Hemoglobin 11.8 g/dL (11.5-15.4); Immature Granulocytes % 0.1 % (0-4); Lymphocytes # 1.4 K/mcL (0.6-4.6); Lymphocytes % 21.1 %; Mean Corpuscular HGB Conc 32.1 g/dL (31.6-35.5); Mean Corpuscular Volume 96.6 fL (83.0-100.0); Mean Platelet Volume 12.1 fL (9.4-12.4); Monocytes # 0.5 K/mcL (0.0-1.3); Monocytes % 7.6 %; Neutrophils # 4.6 K/mcL (1.6-8.9); Platelet Count 194 K/mcL (140-400); Red Blood Count 3.81 M/mcL (3.82-4.97); Segmented Neutrophils % 68.1 %
[2016-09-08 04:00] LABS: BUN/Creatinine Ratio 12 (6-26); Blood Urea Nitrogen 9 mg/dL (7-20); Calcium 8.6 mg/dL (8.6-10.8); Carbon Dioxide 21 mEq/L (19-29); Chloride 112 mEq/L (98-109); Glucose 90 mg/dL (70-99); Osmolality,Calculated 288 (280-300); Potassium 4.3 mEq/L (3.5-4.5); Sodium 140 mEq/L (136-145); eGFR For African Americans > 60 (> 60); eGFR For Non-African Americans > 60 (> 60)
[2016-09-08] MEDS: Pantoprazole 40 MG VIAL IVP SCH (07:22)
[2016-09-08] MEDS: *HR* Heparin 5,000 UNIT/ML VIAL SQ SCH ×2 (07:22→18:10)
[2016-09-08] MEDS: *HR* Morphine 2 MG/ML SYRINGE IVP PRN (07:36)
--- NOTE | 2016-09-08 10:00 | General Surgery Progress Note ---
Date of Encounter: 09/08/16 Time of Encounter: 08:50 - Assessment and Plan (1) Small bowel obstruction Current Visit: Yes Status: Acute Continue with conservative treatment including: NPO and bowel rest. NG removed this AM by medicine service, one episode emesis. Consider replacing NG if frequent emesis. IV fluids, decreased to 90cc/hr. Supportive care and pain control. Serial abdominal exams No urgent surgical intervention indicated at this time- will continue to follow and assess patient progress Subjective Patient reports: no new complaints, feels better, pain is less (states she is just sore from cramping), voiding w/o difficulty, flatus, no bowel movement, afebrile Objective Vital Signs - Last 8 Hours Temp Pulse Resp BP Pulse Ox 09/08/16 07:00 97.9 F 94 16 147/87 97 09/08/16 06:13 160/91 09/08/16 03:55 98.1 F 72 18 160/96 95 Intake and Output 09/07/16 09/08/16 09/08/16 23:59 07:59 15:59 Intake Total 1000 / 1000 1000 / 1000 1000 / 1000 Output Total 1375 / 1375 1450 / 1450 Balance -375 / -375 -450 / -450 1000 / 1000 Intake: IV Fluids 1000 / 1000 1000 / 1000 1000 / 1000 KCl 20 mEq in 0.9% Sodium 1000 / 1000 1000 / 1000 1000 / 1000 Chloride 20 meq In 1,000 ml @ 125 mls/hr IVC .Q8H [facility] Rx#:[id number] Oral 0 / 0 Output: Urine 875 / 875 900 / 900 Gastric Drainage 500 / 500 550 / 550 Right Nare 250 / 250 Other: Meal NPO Weight 106.18 kg Blood Glucose* 71 73 Patient Weight 09/08/16 23:59 Weight 106.18 kg - General physical appearance well developed, well nourished, no distress - Eyes normal ocular movement - ENT normal mucosa, atraumatic, normocephalic - Neck Neck exam: trachea midline - Respiratory normal respiratory effort, clear to auscultation - Cardiovascular Cardiovascular exam: Present: RRR - Abdomen Abdomen: Present: bowel sounds present, soft, non tender. Absent: distended - Integumentary no rash - Neurologic CN 2-12 grossly intact - Psychiatric oriented to time, oriented to person, oriented to place, speech is normal, memory intact - Labs 09/08/16 03:06 09/08/16 03:06 Diabetes panel 09/08/16 Range/Units 03:06 Sodium 140 (136-145) mEq/L Potassium 4.3 (3.5-4.5) mEq/L Chloride 112 H (98-109) mEq/L Carbon Dioxide 21 (19-29) mEq/L BUN 9 (7-20) mg/dL Creatinine 0.73 (0.57-1.11) mg/dL Glucose 90 (70-99) mg/dL Calcium 8.6 (8.6-10.8) mg/dL Calcium panel 09/08/16 Range/Units 03:06 Calcium 8.6 (8.6-10.8) mg/dL Pituitary panel 09/08/16 Range/Units 03:06 Sodium 140 (136-145) mEq/L Potassium 4.3 (3.5-4.5) mEq/L Chloride 112 H (98-109) mEq/L Carbon Dioxide 21 (19-29) mEq/L BUN 9 (7-20) mg/dL Creatinine 0.73 (0.57-1.11) mg/dL Glucose 90 (70-99) mg/dL Calcium 8.6 (8.6-10.8) mg/dL Adrenal panel 09/08/16 Range/Units 03:06 Sodium 140 (136-145) mEq/L Potassium 4.3 (3.5-4.5) mEq/L Chloride 112 H (98-109) mEq/L Carbon Dioxide 21 (19-29) mEq/L BUN 9 (7-20) mg/dL Creatinine 0.73 (0.57-1.11) mg/dL Glucose 90 (70-99) mg/dL Calcium 8.6 (8.6-10.8) mg/dL Consult Discharge Plan - Plan Referrals: Lucille Hood, LOW [Primary Care Provider] -
--- NOTE | 2016-09-08 11:20 | Internal Med Progress Note ---
Date of Encounter: 09/08/16 Time of Encounter: 09:00 - Assessment and plan (1) Small bowel obstruction Current Visit: Yes Status: Acute Assessment and plan: Continue medically conservative treatment with nothing by mouth, IV fluid. Closely monitoring (2) DVT prophylaxis Current Visit: Yes Status: Acute Assessment and plan: Heparin subcutaneously - Time Spent With Patient 25 - 35 minutes - Subjective Interval history: Patient is a 51-year-old female admitted for small bowel obstruction. Her past medical history is significant for history of hysterectomy. Patient was seen and examined. She feels better. No nausea. No abdominal pain. States had passed gas a couple of hours ago. Feels discomfort with NG tube. Will discontinue NG tube. Keep nothing by mouth and IV fluid. Surgical consult on case and appreciated. We will continue conservative treatment and close monitoring. - Constitutional Vitals: Temp Pulse Resp BP Pulse Ox 97.9 F 94 16 147/87 97 09/08/16 07:00 09/08/16 07:00 09/08/16 07:00 09/08/16 07:00 09/08/16 07:00 General appearance: Present: cooperative, A&O X 3, pleasant, no acute distress, answers questions appropriately - Head Head exam: Present: atraumatic, normocephalic - Eye Eye exam: Present: PERRL, conjuntiva pink, sclera anicteric Pupils: Present: PERRL - Neck Neck exam general surgery: Present: supple, trachea midline. Absent: lymphadenopathy - Respiratory Respiratory exam: Present: CTAB. Absent: accessory muscle use, rales, rhonchi, wheezes - Cardiovascular Cardiovascular exam: Present: RRR, +S1, +S2. Absent: diastolic murmur, gallop, rubs, systolic murmur - GI/Abdominal GI/Abdominal exam: Present: normal bowel sounds, soft, no peritoneal signs. Absent: distended, tenderness - Extremities Exam Extremities exam: Present: warm, radial pulses palpable and symetrical. Absent : calf tenderness, cyanotic, pedal edema - Neurological Exam Neurological exam: Present: CN II-XII intact, oriented X3, no focal deficits. Absent: pronater drift, facial droop, speech deficit - Skin Skin exam: Present: dry, intact Internal Medicine: Result - Labs CBC & Chem 7: 09/08/16 03:06 09/08/16 03:06 Labs: Short CBC 09/08/16 Range/Units 03:06 WBC 6.7 (4.3-11.1) K/mcL Hgb 11.8 (11.5-15.4) g/dL Hct 36.8 (35.3-44.9) % Plt Count 194 (140-400) K/mcL Neutrophils # 4.6 (1.6-8.9) K/mcL BMP 09/08/16 03:06 Sodium 140 Potassium 4.3 Chloride 112 H Carbon Dioxide 21 BUN 9 Creatinine 0.73 Glucose 90 Calcium 8.6 Consult Discharge Plan - Plan Referrals: Lucille Hood, [employer] ACCOUNT MANAGER [Primary Care Provider] -
[2016-09-08] MEDS: Ondansetron 4 MG/2 ML VIAL IVP PRN (11:29)
[2016-09-08] MEDS ORDERED: 0.9 % Sodium Chloride w KCl 20 MEQ/1,000 ML MLS IVC SCH (13:08)
[2016-09-08] MEDS: D5% in 0.45% NACL 1,000 ML IVC SCH (18:10)
[2016-09-09] MEDS ORDERED: Mag Hydrox/Al Hydrox/Simeth 30 ML UDC PO PRN (01:50)
[2016-09-09] MEDS ORDERED: *HR* OxyCODONE Immed Rel 5 MG TABLET PO PRN (01:50)
[2016-09-09] MEDS: Acetaminophen 325 MG TABLET PO PRN ×2 (04:43→12:59)
[2016-09-09] MEDS: D5% in 0.45% NACL 1,000 ML IVC SCH ×2 (04:54→12:56)
[2016-09-09 07:13] LABS: Basophils % 0.5 %; Eosinophils # 0.2 K/mcL (0.0-0.6); Eosinophils % 2.8 %; Hematocrit 37.4 % (35.3-44.9); Immature Granulocytes % 0.1 % (0-4); Lymphocytes # 1.2 K/mcL (0.6-4.6); Mean Corpuscular HGB Conc 32.1 g/dL (31.6-35.5); Mean Corpuscular Hemoglobin 30.5 pg (28.0-33.3); Mean Corpuscular Volume 94.9 fL (83.0-100.0); Mean Platelet Volume 12.2 fL (9.4-12.4); Monocytes # 0.5 K/mcL (0.0-1.3); Monocytes % 6.2 %; Neutrophils # 5.8 K/mcL (1.6-8.9); Platelet Count 208 K/mcL (140-400); Red Blood Count 3.94 M/mcL (3.82-4.97); Red Cell Distribution Width 12.7 % (11.5-14.5); Segmented Neutrophils % 75.4 %
[2016-09-09] MEDS: Pantoprazole 40 MG VIAL IVP SCH (07:24)
[2016-09-09] MEDS: *HR* Heparin 5,000 UNIT/ML VIAL SQ SCH (07:24)
[2016-09-09 07:28] LABS: BUN/Creatinine Ratio 11 (6-26); Blood Urea Nitrogen 8 mg/dL (7-20); Calcium 8.9 mg/dL (8.6-10.8); Carbon Dioxide 21 mEq/L (19-29); Chloride 108 mEq/L (98-109); Glucose 119 mg/dL (70-99); Osmolality,Calculated 289 (280-300); Potassium 3.6 mEq/L (3.5-4.5); Sodium 140 mEq/L (136-145); eGFR For African Americans > 60 (> 60); eGFR For Non-African Americans > 60 (> 60)
--- NOTE | 2016-09-09 10:33 | Internal Med Progress Note ---
Date of Encounter: 09/09/16 Time of Encounter: 09:00 - Assessment and plan (1) Small bowel obstruction Current Visit: Yes Status: Acute Assessment and plan: Continue medically conservative treatment, advanced diet to clear liquid, IV fluid. Closely monitoring (2) DVT prophylaxis Current Visit: Yes Status: Acute Assessment and plan: Heparin subcutaneously - Time Spent With Patient 25 - 35 minutes - Subjective Interval history: Patient is a 51-year-old female admitted for small bowel obstruction. Her past medical history is significant for history of hysterectomy. Patient was seen and examined. She feels better. No nausea. No abdominal pain. States keep passing gas. Feels hungry. Will start clear liquid diet. Patient was educated to eat a small amount at one time. Surgical consult on case and appreciated. We will continue conservative treatment and close monitoring. - Constitutional Vitals: Temp Pulse Resp BP Pulse Ox 97.5 F L 74 16 150/91 96 09/09/16 07:00 09/09/16 07:00 09/09/16 07:00 09/09/16 07:00 09/09/16 07:00 General appearance: Present: cooperative, A&O X 3, pleasant, no acute distress, answers questions appropriately - Head Head exam: Present: atraumatic, normocephalic - Eye Eye exam: Present: PERRL, conjuntiva pink, sclera anicteric Pupils: Present: PERRL - Neck Neck exam general surgery: Present: supple, trachea midline. Absent: lymphadenopathy - Respiratory Respiratory exam: Present: CTAB. Absent: accessory muscle use, rales, rhonchi, wheezes - Cardiovascular Cardiovascular exam: Present: RRR, +S1, +S2. Absent: diastolic murmur, gallop, rubs, systolic murmur - GI/Abdominal GI/Abdominal exam: Present: normal bowel sounds, soft, no peritoneal signs. Absent: distended, tenderness - Extremities Exam Extremities exam: Present: warm, radial pulses palpable and symetrical. Absent : calf tenderness, cyanotic, pedal edema - Neurological Exam Neurological exam: Present: CN II-XII intact, oriented X3, no focal deficits. Absent: pronater drift, facial droop, speech deficit - Skin Skin exam: Present: dry, intact Internal Medicine: Result - Labs CBC & Chem 7: 09/09/16 06:35 09/09/16 06:35 Labs: Short CBC 09/09/16 Range/Units 06:35 WBC 7.8 (4.3-11.1) K/mcL Hgb 12.0 (11.5-15.4) g/dL Hct 37.4 (35.3-44.9) % Plt Count 208 (140-400) K/mcL Neutrophils # 5.8 (1.6-8.9) K/mcL BMP 09/09/16 06:35 Sodium 140 Potassium 3.6 Chloride 108 Carbon Dioxide 21 BUN 8 Creatinine 0.70 Glucose 119 H Calcium 8.9 Consult Discharge Plan - Plan Referrals: Lucille Hood, EXPORT PACKER [Primary Care Provider] -
--- NOTE | 2016-09-09 13:48 | General Surgery Progress Note ---
Date of Encounter: 09/09/16 Time of Encounter: 08:00 - Assessment and Plan (1) Small bowel obstruction Current Visit: Yes Status: Acute Improving, Continue with conservative treatment including: Patient started on clear liquids. NG removed yesteday with one episode emesis after. No further episodes of emesis. IV fluids, decreased to 90cc/hr. If patient able to tolerate PO, will consider dc IV fluids. Supportive care and pain control. Serial abdominal exams No urgent surgical intervention indicated at this time- will continue to follow and assess patient progress Subjective Patient reports: no new complaints, feels better, pain is less, flatus, no bowel movement, afebrile, other (No vomiting. Patient concerned her persistent headache is from lack of caffeine.) Objective Vital Signs - Last 8 Hours Temp Pulse Resp BP Pulse Ox 09/09/16 11:00 97.7 F 74 16 148/99 97 09/09/16 07:00 97.5 F L 74 16 150/91 96 Intake and Output 09/08/16 09/09/16 09/09/16 23:59 07:59 15:59 Intake Total 1000 / 1000 1000 / 1000 1720 / 1720 Output Total 700 / 700 2100 / 2100 1000 / 1000 Balance 300 / 300 -1100 / -1100 720 / 720 Intake: IV Fluids 1000 / 1000 1000 / 1000 1000 / 1000 KCl 20 mEq in 0.9% Sodium 1000 / 1000 Chloride 20 meq In 1,000 ml @ 125 mls/hr IVC .Q8H [facility] Rx#:[id number] D5% And 0.45% Nacl 1000 1000 / 1000 1000 / 1000 Ml Bag 1,000 ML @ 125 mls /hr IVC .Q8H [facility] Rx#: [id number] Oral 0 / 0 720 / 720 Output: Urine 700 / 700 2100 / 2100 1000 / 1000 Other: Meal Breakfast Weight 102.739 kg Blood Glucose* 75 115 Patient Weight 09/09/16 23:59 Weight 102.739 kg - General physical appearance well developed, well nourished, no distress - Eyes normal ocular movement - ENT normal mucosa, atraumatic, normocephalic - Neck Neck exam: trachea midline - Respiratory normal respiratory effort, clear to auscultation - Cardiovascular Cardiovascular exam: Present: RRR - Abdomen Abdomen: Present: bowel sounds present (hypoactive), soft, non tender - Integumentary no rash - Neurologic CN 2-12 grossly intact - Musculoskeletal normal posture - Psychiatric oriented to time, oriented to person, oriented to place, speech is normal, memory intact - Labs 09/09/16 06:35 09/09/16 06:35 Diabetes panel 09/09/16 Range/Units 06:35 Sodium 140 (136-145) mEq/L Potassium 3.6 (3.5-4.5) mEq/L Chloride 108 (98-109) mEq/L Carbon Dioxide 21 (19-29) mEq/L BUN 8 (7-20) mg/dL Creatinine 0.70 (0.57-1.11) mg/dL Glucose 119 H (70-99) mg/dL Calcium 8.9 (8.6-10.8) mg/dL Calcium panel 09/09/16 Range/Units 06:35 Calcium 8.9 (8.6-10.8) mg/dL Pituitary panel 09/09/16 Range/Units 06:35 Sodium 140 (136-145) mEq/L Potassium 3.6 (3.5-4.5) mEq/L Chloride 108 (98-109) mEq/L Carbon Dioxide 21 (19-29) mEq/L BUN 8 (7-20) mg/dL Creatinine 0.70 (0.57-1.11) mg/dL Glucose 119 H (70-99) mg/dL Calcium 8.9 (8.6-10.8) mg/dL Adrenal panel 09/09/16 Range/Units 06:35 Sodium 140 (136-145) mEq/L Potassium 3.6 (3.5-4.5) mEq/L Chloride 108 (98-109) mEq/L Carbon Dioxide 21 (19-29) mEq/L BUN 8 (7-20) mg/dL Creatinine 0.70 (0.57-1.11) mg/dL Glucose 119 H (70-99) mg/dL Calcium 8.9 (8.6-10.8) mg/dL Consult Discharge Plan - Plan Referrals: Lucille Hood, LOW [Primary Care Provider] -
[2016-09-09] MEDS ORDERED: Acetaminophen/Aspirin/Caffeine TABLET PO PRN (13:49)
[2016-09-09 16:21] VITALS: BP 143/83
[2016-09-09] MEDS ORDERED: D5% in 0.45% NACL 1,000 ML IVC SCH (17:04)
--- NOTE | 2016-09-09 17:23 | Discharge Summary ---
Date of Encounter: 09/09/16 Time of Encounter: 17:00 - Discharge Diagnosis (1) Small bowel obstruction Priority: Primary Status: Resolved Comments: Resolved, has appetite and passing stool. NG removed yesteday with one episode emesis after. No further episodes of emesis. Supportive care and pain control. Serial abdominal exams No urgent surgical intervention indicated at this time. - Discharge Medications Home Medications: Cholecalciferol (Vitamin D3) [Vitamin D3] 1,000 unit PO DAILY 09/06/16 [History] Multivitamin [Multi-Day Vitamins] 1 tab PO DAILY 09/06/16 [History] Thyroid,Pork [Scalemaker Thyroid] 15 mg PO DAILY 09/06/16 [History] Zinc Acetate [Galzin] 50 mg PO DAILY 09/06/16 [History] Allergies/Adverse Reactions: Allergies gentamicin Adverse Reaction (Verified 09/06/16 16:20) Itching Sulfa (Sulfonamide Antibiotics) Adverse Reaction (Verified 09/06/16 16:20) Hives General Surgery Exam Initial Vital Signs Temp Pulse Resp BP Pulse Ox 97.5 F L 74 16 165/106 99 09/06/16 16:16 09/06/16 16:16 09/06/16 16:16 09/06/16 16:16 09/06/16 16:16 - General physical appearance well developed, well nourished, no distress - Eyes normal ocular movement - ENT normal nares, normal mucosa, no hearing loss, no congestion - Neck trachea midline - Respiratory normal expansion, normal respiratory effort, clear to auscultation - Cardiovascular Cardiovascular exam: Present: RRR, 15, 16 - Abdomen Abdomen general surgery: Present: bowel sounds present, soft, non tender - Integumentary Integumentary general surgery: Present: warm and dry, no abnormal pigmentation - Neurologic Present: CN 2-12 grossly intact, normal coordination, normal sensation - Musculoskeletal Present: normal gait, normal posture - Psychiatric Psychiatric general surgery: Present: appropriate, oriented to person, oriented to place, oriented to time, speech is normal, memory intact Date of admission: 09/07/16 11:32 Primary care physician: Osmany Christopher Discharging clinician: Faraz Silva Anticipated date of discharge: 09/09/16 - Patient Status Disposition: Home, Self-Care Condition: Fair Functional capacity at discharge: independent ambulation Overall status at discharge: patient is progressing back to baseline - Discharge Instructions Follow Up With: Lucille Hood CNP [Primary Care Provider] - - Diet and Activity Activity: resume usual activities as tolerated Diet: advance to your usual diet - Hospital Course Hospital course: Ms. Wagner is a 51 year old female admitted for N/V, abdominal pain; found to have a SBO on CT. Conservative measures taken with NG placement and bowel rest. Patient's pain resolved, she tolerated clear liquids. Noted to have flatus and BM. Patient feels comfortable going home at this point. Patient to be discharged home to follow up with PCP. Understands to call Surgery if symptoms return or worsen. - Time Spent with Patient Total time spent providing and/or coordinating discharge services: Less than 30 minutes Labs on day of discharge: Labs from last 24 hours 09/09/16 09/09/16 09/09/16 06:35 06:35 05:57 WBC 7.8 RBC 3.94 Hgb 12.0 Hct 37.4 MCV 94.9 MCH 30.5 MCHC 32.1 RDW 12.7 Plt Count 208 MPV 12.2 Immature Gran % 0.1 Seg Neutrophils % 75.4 Lymphocytes % 15.0 Monocytes % 6.2 Eosinophils % 2.8 Basophils % 0.5 Neutrophils # 5.8 Lymphocytes # 1.2 Monocytes # 0.5 Eosinophils # 0.2 Basophils # 0.0 Sodium 140 Potassium 3.6 Chloride 108 Carbon Dioxide 21 BUN 8 Creatinine 0.70 Est GFR ( Amer) > 60 Est GFR (Non-Af Amer) > 60 BUN/Creatinine Ratio 11 Glucose 119 H POC Glucose 115 H Calculated Osmolality 289 Calcium 8.9 09/09/16 09/08/16 00:06 18:15 WBC RBC Hgb Hct MCV MCH MCHC RDW Plt Count MPV Immature Gran % Seg Neutrophils % Lymphocytes % Monocytes % Eosinophils % Basophils % Neutrophils # Lymphocytes # Monocytes # Eosinophils # Basophils # Sodium Potassium Chloride Carbon Dioxide BUN Creatinine Est GFR ( Amer) Est GFR (Non-Af Amer) BUN/Creatinine Ratio Glucose POC Glucose 98 H 75 Calculated Osmolality Calcium
== END 2016-09-09 18:50 | disposition home or self-care (01) | DRG 390 ==
LOC: 3ANU 15:56 → EMEROO 15:56 → 3ANU 22:17
PROVIDERS: ADMIT Internal Medicine; ATTEND Internal Medicine